=== PATIENT | female | born 1985 | race Caucasian/White ===

== ENCOUNTER → 2017-10-12 | Outpatient (CLI) | payer BC ==
[~2017-10-12] MED LIST: MOTRIN 600600 MG/TAB PO; PERCOCET 325 MG1 TA2 PO; PRENATAL1 TA1 PO; ZITHROMAX Z PA250 MG PO
== END ==
LOC: SUN.DIA 10:58
DX: O24.419 Gestational diabetes mellitus in pregnancy, unspecified control (principal); Z3A.30 30 weeks gestation of pregnancy; Z71.3 Dietary counseling and surveillance; Z87.891 Personal history of nicotine dependence
CPT/HCPCS: G0108

== ENCOUNTER → 2017-10-25 | Outpatient (CLI) | payer BC | LOC: SUN.DIA 09:03 | DX: O24.419 Gestational diabetes mellitus in pregnancy, unspecified control (principal); Z3A.32 32 weeks gestation of pregnancy; Z71.3 Dietary counseling and surveillance; Z87.891 Personal history of nicotine dependence | CPT/HCPCS: G0108 ==

== ENCOUNTER → 2017-11-15 | Outpatient (CLI) | payer BC | LOC: SUN.DIA 08:49 | DX: O24.419 Gestational diabetes mellitus in pregnancy, unspecified control (principal); Z3A.35 35 weeks gestation of pregnancy; Z87.891 Personal history of nicotine dependence | CPT/HCPCS: G0108 ==

== ENCOUNTER 2017-12-12 23:09 | Inpatient (IN) | payer BC ==
[~2017-12-12] VITALS: Ht 165.1 cm; Wt 106.8 kg
[2017-12-12 23:32] VITALS: TEMP 98.4
[2017-12-13] VITALS (20 sets, daily range): BP systolic 107–138; BP diastolic 49–87; PULSE 73–104; TEMP 97.4–99.3
[2017-12-13 00:20] LABS: HEMATOCRIT 41.5 % (37.0-47.0); MEAN CELL VOLUME 89 fl (80.0-100.0); MEAN CORPUSCULAR HEMOGLOBIN 30 pg (27.0-31.0); MEAN CORPUSCULAR HGB CONC 34 g/dl (33.0-37.0); MEAN PLATELET VOLUME 10.6 fl (7.4-10.4); PLATELET COUNT 231 K/mm3 (130-400); RED BLOOD COUNT 4.69 M/mm3 (4.10-5.30); REDCELL DISTRIBUTION WIDTH-CV 14.1 % (11.5-14.5)
[2017-12-13 00:41] LABS: BAND 16 % (0-10); EOSINOPHIL 1 % (0-4); LYMPHOCYTE 19 % (20.0-51.0); METAMYELOCYTE 1 % (0-0); NEUTROPHILS 56 % (42.0-75.2); PLATELET ESTIMATE NORMAL (NORMAL)
[2017-12-14 07:32] LABS: HEMOGLOBIN 12.7 g/dl (12.5-16.0)
[2017-12-14 08:06] VITALS: BP 116/71; PULSE 74
[2017-12-14] MEDS ORDERED: IBU600 MG PO (08:44)
[2017-12-14] MEDS ORDERED: PERCOCET 325 MG1 TA2 PO (08:45)
== END 2017-12-14 13:35 | disposition home or self-care (01) | DRG 766 ==
LOC: LDRO 23:09 → LDR 23:40 → OB 12-13 02:40
PROVIDERS: Obstetrics & Gynecology; Student in an Organized Health Care Education/Training Program
PROC: 10D00Z1 Extraction of Products of Conception, Low, Open Approach (ICD-10-PCS; principal; 2017-12-13)
PROC: 0UT70ZZ Resection of Bilateral Fallopian Tubes, Open Approach (ICD-10-PCS; 2017-12-13)
DX: O34.211 Maternal care for low transverse scar from previous cesarean delivery (principal); O42.02 Full-term premature rupture of membranes, onset of labor within 24 hours of rupture; Z3A.39 39 weeks gestation of pregnancy; Z37.0 Single live birth; Z40.03 Encounter for prophylactic removal of fallopian tube(s); O24.420 Gestational diabetes mellitus in childbirth, diet controlled; O99.214 Obesity complicating childbirth
CPT/HCPCS: J0690; J1885; J2270; J2370; J2405; J2590; J7120